=== PATIENT | female | born 1985 | race Caucasian/White ===

== ENCOUNTER 2023-06-29 13:26 | Emergency (ER) | payer MEDICAID, SELFPAY ==
--- NOTE | ~2023-06-29 | US_ITS ---
EXAMINATION: US VENOUS ULTRASOUND WITH DOPPLER LOWER EXTREMITY, LEFT CLINICAL INFORMATION: Left calf pain COMPARISON: None available. TECHNIQUE: Ultrasound of the deep veins is performed from the hip to the calf with compression sonography and color and pulse Doppler assessment. Spectral analysis with color-flow imaging is performed. FINDINGS: The left common femoral vein is not optimally visualized however there is a small filling defect visualized. The left superficial femoral, greater saphenous and popliteal veins are patent. The left femoral vein is not visualized. The posterior tibial vein is noncompressible. There is no significant popliteal fossa cyst. If the patient's symptoms persist, followup ultrasound in 5 days 7 days might be of value to exclude proximal propagation from a non-visualized calf vein. US/US venous duplex LE LT IMPRESSION: Positive DVT left lower leg. Partial thrombus visualized in the left common femoral vein. The posterior tibial vein is noncompressible and suspicious for thrombus.
[2023-06-29 14:50] VITALS: BP 168/71; PULSE 94; RESP 20; TEMP 36.9; O2SAT 98; BMI 32.6
--- NOTE | 2023-06-29 14:50 | ED_ITS ---
HPI - General Adult General Chief complaint: Extremity Problem Stated complaint: ? DVT L Leg Time Seen by Provider: 06/29/23 17:40 Source: patient Mode of arrival: ambulatory Limitations: no limitations History of Present Illness HPI narrative: This is a 38-year-old female history of obesity presenting to the emergency department with 3 days of L calf soreness, patient describes it as ?I feel like I pulled muscle ?patient reports nothing makes the pain better or worse. Patient reports she has no history of DVT or PE. She is a current daily smoker, currently has an IUD in place, no history of malignancy, no recent travel, no chest pain, shortness of breath, fevers, chills, headache, vision changes, dizziness, weakness. Denies blunt trauma to right calf Related Data Previous Rx's Medication Instructions Recorded apixaban 5 mg (74 tabs) tablets in 5 mg PO BID #74 ea 06/29/23 a dose pack (Eliquis DVT-PE Treat 30D Start) Allergies Allergy/AdvReac Type Severity Reaction Status Date / Time Sulfa (Sulfonamide AdvReac Stomach Verified 06/29/23 14:50 Antibiotics) Upset Review of Systems 2 Review of Systems: Constitutional : No Weight loss, No Fever, No Chills, No Fatigue, No Malaise ENT/Mouth : No sore throat, No Rhinorrhea Eyes: No Eye Pain, No Swelling, No Redness Cardiovascular : No Chest Pain, No SOB, No Dyspnea on Exertion, No Orthopnea, No Edema, No Palpitations Respiratory : No Cough, No Sputum, No Wheezing Gastrointestinal : No Nausea, No Vomiting, No Diarrhea, No Constipation, No abdominal Pain, No Hematochezia, No Melena Genitourinary : No Dysuria, No Urinary Frequency, No Hematuria, Musculoskeletal : No joint pain, No Myalgias, + Joint Swelling Skin : No Skin Lesions, No rash Neuro : No Weakness, No Numbness, No Dizziness, No Headache Psych : No Anxiety/Panic, No Depression All other systems reviewed and are negative Yes all other systems are reviewed and are negative [facility] Past Medical History Attestation statement: The following information was validated with the patient. Source: old records reviewed and nursing notes reviewed Social History Social History Advance Directives: No Advance Directives Information Provided: Yes Physical Exam ED Vital Signs: Vital Signs - 24 hr 06/29/23 14:50 Temperature 98.5 F Pulse Rate 94 Respiratory Rate 20 Blood Pressure 168/71 H Pulse Oximetry 98 Oxygen Delivery Method Room Air BMI result Body Mass Index 32.6 vss Appearance: Alert.? Oriented X3.? No acute distress.? Head: Normocephalic, atraumatic, no step-offs or deformities Eyes: Pupils equal, round and reactive to light.? ENT: Pharynx normal.? Neck: Normal inspection.? Neck supple.? CVS: Normal heart rate and rhythm.? Pulses normal.? Respiratory: No respiratory distress.? Breath sounds normal.? Skin: Skin warm and dry.? Normal skin color.? Normal skin turgor.? Extremities: 2+ nonpitting edema to bilateral lower extremities slightly worse on the left, positive Homans sign on the left negative on the right. 2+ dorsalis pedis, anterior tibialis and posterior tibialis pulses equal bilateral. Normal sensation distally. 5/5 strength to bilateral upper and lower extremities Back: No midline tenderness, no C-spine tenderness, full range of motion, no CVA tenderness bilaterally Neuro: Oriented X 3.? No motor deficit.? No sensory deficit. CN 2-12 intact Course Course Course Narrative: This is an RME: Additional HPI, ROS, PE not included below will be deferred to primary provider. This is a [id number]-female, with a history of varicose veins, presenting to the emergency department with a complaint of left lower leg pain x 3 days. No recent travel, surgeries, hospitalizations. No history of blood clots. No history of cancer. No injury or trauma. Tender to palpation along the left calf. Plan: Ultrasound left lower extremity Reevaluation(s) Reevaluation #1: Patient's DVT study positive for DVT in the left lower extremity partial thrombus in the left common femoral vein, posterior tibial vein is not compressible and suspicious for thrombus, will start on Eliquis at this time however will do labs beforehand to ensure this is safe. At this time patient denies bleeding from rectum, vomiting blood, or any bleeding at all. No history of hypercoagulable disorders this has never happened to her before. I did have a long conversation discussing risks versus benefits of initiating Eliquis including increased risk for bleeding patient verbalizes understanding of this. Pending labs and will discharge her on Eliquis starter pack. Patient does not have a PCP will give her list of PCPs in the area. Time: 17:55 Reevaluation #2: Unremarkable CBC, coags will discharge at this time peer insert chart disc Time: 18:42 Medical Decision Making Medical Decision Making [facility] Narrative: 38-year-old female presents with right calf soreness x3 days worsening. Currently has an IUD in place and is a current daily smoker. Physical examination with 2+ nonpitting edema to bilateral lower extremities normal sensation neurovascular status intact. History and physical exam concerning for possible musculoskeletal pain versus DVT. Unlikely arterial occlusion, acute threat to Diaz, neurovascular compromise, acute fracture, dislocation. No signs of compartment syndrome. I do not suspect pulmonary embolism at this time. Other differentials include hypercoagulable disorders. Plan at this time DVT study, labs. Differential Diagnosis Differential Diagnoses: The differential diagnosis associated with the presentation includes History and physical exam concerning for possible musculoskeletal pain versus DVT. Unlikely arterial occlusion, acute threat to Diaz, neurovascular compromise, acute fracture, dislocation. No signs of compartment syndrome. I do not suspect pulmonary embolism at this time. Other differentials include hypercoagulable disorders. Admission/Observation Consideration of admission/observation: Escalation of care including admission/observation considered Unlikely Lab Data [facility] Lab Attestation statement: I reviewed the patient's lab results. 06/29/23 18:05 06/29/23 18:05 Labs: Lab Results 06/29/23 Range/Units 18:05 PT 11.1 (11.1-13.3) SEC INR 0.9 (0.9-1.1) Sodium 137 (135-145) mmol/L Potassium 4.8 (3.3-5.1) mmol/L Chloride 102 (96-108) mmol/L Carbon Dioxide 25 (22-29) mmol/L Anion Gap 15 (12-20) BUN 13 (9-16) mg/dL Creatinine 0.88 (0.5-1.4) mg/dL Estim Creat Clear Calc 91.1 Estimated GFR > 60 Random Glucose 105 (60-115) mg/dL Calcium 9.9 (8.4-10.2) mg/dL Total Bilirubin 0.2 (0.0-1.0) mg/dL AST 13 (5-31) U/L ALT 9 (0-31) U/L Alkaline Phosphatase 108 (39-117) U/L Total Protein 8.6 H (6.5-8.0) g/dL Albumin 4.5 (3.5-5.0) g/dL Independent Interpretation I performed an independent interpretation of an: Ultrasound (US/US venous duplex LE LT IMPRESSION: Positive DVT left lower leg. Partial thrombus visualized in the left common femoral vein. The posterior tibial vein is noncompressible and suspicious for thrombus.) Radiology Impression Discussion of test interpretation with radiology: I have reviewed the radiologist's reading. Chronic Conditions Patient?s care impacted by: Other (obesity ) Critical Care Time Critical Care Time Critical Care Time: No Discharge Plan Discharge Clinical Impression: Deep vein thrombosis of lower extremity Patient Disposition: Home, Self-Care Instructions: Deep Vein Thrombosis (ED) Additional Instructions: Take your medications as prescribed. If you were prescribed antibiotics today, it is important that you take your medication to their entirety, do not skip any doses, do not finish them early. Follow-up with your primary care provider this week. Return to the emergency department with new or worsening symptoms. Such as fevers, chills, chest pain, shortness of breath, nausea, vomiting, dizziness, headache, vision changes, lethargy In case of emergency call 911 If you fall or have any trauma he should be evaluated in emergency department promptly. If you experience any bleeding from the rectum or any oral see you should seek medical attention immediately. Eliquis has been sent to your pharmacy please take this as prescribed this is a starter pack if you have any questions about how to take it please ask your pharmacy. Prescriptions: New Eliquis DVT-PE Treat 30D Start 5 mg (74 tabs) tablets,dose pack 5 mg PO BID Qty: 74 0RF Rx Instructions: Starter Pack dosing- 10 mg twice daily for 7 days followed by 5 mg twice daily. Referrals: [facility] Primary CareIsa[facility] [Provider Group] - 1 day [facility] Primary CareRonal [Provider Group] - 1 day Physician,Jagdish [Primary Care Provider] - 2 days Stand Alone Forms: Work/School Release
--- OUTSIDE RECORDS SUMMARY | 2023-06-29 18:08 | XMS_ITS | Continuity of Care Document ---
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 Refills 0, Maintenance, for constipation, 08/01/20 10:16:00 EST, Route to Pharmacy Electronically, [facility], Partial fill upon patient request if the presc... Start Date: 08/01/20 Status: Ordered doxycycline hyclate 100 mg oral tablet 1 tablet = 100 mg, By Mouth, 2 times a day, # 20 tablet, 0 Refills Start Date: 01/01/09 Stop Date: 01/11/09 Status: Ordered Methadone = 75 mg, By Mouth, 0 Refills, Maintenance, 08/18/20 9:40:00 EST, Partial fill upon patient request if the prescription is for a schedule II opioid drug. Start Date: 08/18/20 Status: Ordered Percocet-5 Tablet See Instructions, 12, tablet, 0, 0, 05/14/07 22:34:43, 1 or 2 every 4 to 6 hours, Print MARGARITA Number,ADS OPPTHS, Constant Indicator Start Date: 05/14/07 Status: Ordered Tylox 500 mg-5 mg oral capsule See Instructions, 1 capsule By Mouth Every 6 hours as needed for pain, # 12 capsule, 0 Refills Start Date: 01/01/09 Stop Date: 01/08/09 Status: Ordered Problem List Condition Effective Dates Status Health Status Inform ant History of intravenous drug abuse(Confirmed) Active Vital Signs Most recent to oldest [Reference Range]: 1 Height 160 cm (08/18/20 9:36 AM) Pulse Rate [55-90 bpm] 80 bpm (08/18/20 9:36 AM) Blood Pressure [90-138/55-84 mm Hg] 99/6 3mm Hg (08/18/20 9:36 AM) Temperature [96.8-100.4 DegF] 95.8 DegF *L* (08/18/20 9:36 AM) Blood pressure sites Arm, right (08/18/20 9:36 AM) Temperature Route Temporal (08/18/20 9:36 AM) Social History Social History Type Response Smoking Status 10 or more cigarette s (1/2 pack or more)/day in last 30 days entered on: 08/18/20 Sex
--- OUTSIDE RECORDS SUMMARY | 2023-06-29 18:08 | XMS_ITS | Continuity of Care Document ---
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 Refills 0, Maintenance, for constipation, 08/01/20 10:16:00 EST, Route to Pharmacy Electronically, [facility], Partial fill upon patient request [...] ant History of intravenous drug abuse(Confirmed) Active Social History Social History Type Response Smoking Status 10 or more cigarette s (1/2 pack or more)/day in last 30 days entered on: 08/18/20 Sex
--- OUTSIDE RECORDS SUMMARY | 2023-06-29 18:08 | XMS_ITS | Continuity of Care Document ---
Author Name Unknown Organization [facility] ter Address [address] [place] [id number]- Care Team Providers Care Automotive Parts Advisor Name Role Phone Talib Burks DO Primary Care Physician [place] [facility] [place] 08/01/[address] [address] Encounter Diagnosis Abdominal pain(Final) - 07/30/20 Discharge Disposition: A-D/C Home Attending Physician: Farzana Olivia MD Admitting Physician: Farzana Olivia MD Referring Physician: Not on Staff, Referring MD Allergies, Adverse Reactions, Alerts Substance Reaction Severity Status sulfa drugs Active Medications Augmentin 875 mg-125 mg oral tablet 1 tablet, By Mouth, Every 12 hours, for 7 days, # 14 tablet, 0 Refills, Acute 08/08/20 10:16:00 EST, 08/01/20 10:16:00 EST, Tablet, [facility], Partial fill upon patient request if the prescription is for a schedule II opioid drug., 160,... Start Date: 08/01/20 Stop Date: 08/08/20 Status: Ordered Colace sodium 100 mg oral capsule 100 mg, 1, capsule, By Mouth, 2 times a day, PRN, # 20 capsule, Refills 0, Tot. Refills 0, Maintenance, for constipation, 08/01/20 10:16:00 EST, Route to Pharmacy Electronically, [facility], Partial fill upon patient request if the presc... Start Date: 08/01/20 Status: Ordered doxycycline hyclate 100 mg oral tablet 1 tablet = 100 mg, By Mouth, 2 times a day, # 20 tablet, 0 Refills Start Date: 01/01/09 Stop Date: 01/11/09 Status: Ordered oxyCODONE 5 mg oral tablet 5 mg, Tablet, By Mouth, Every 4 hours, PRN for Pain , Severe, Routine, 07/31/20 16:06:00 EST Start Date: 07/31/20 Stop Date: 08/01/20 Status: Discontinued Percocet-5 Tablet See Instructions, 12, tablet, 0, [...] ant History of intravenous drug abuse(Confirmed) Active Procedures Procedure Date Related Diagnosis Body Site Status Laparoscopy, surgical; skye cystectomy with cholangiography 1 07/31/20 Completed 1IOC without filling defects in biliary tree, with free flow to duodenum. cystic duct emanates from right hepatic duct. Results Orders for Microbiology Reports Name Date Anaerobic Culture (ANAEROBIC CULTURE) 07/31/20 Wound Deep Culture w/ Gram Smear (DEEP W OUND CULTURE) 07/31/20 Microbiology Reports TEST:Anaerobic Culture STATUS:Unauthenticated BODY SITE: SOURCE:FLUID COLLECTED DATE/TIME:07/31/20 2:59 PM Anaerobic Culture SPECIMEN DESCRIPTION : FLUID GALLBLADDER CONTENTS SPECIAL REQUESTS : NONE CULTURE : NO ANAEROBES ISOLATED SO FAR. REPORT STATUS : PRELIMINARY REPORT TEST:Deep Wound Culture STATUS:Unauthenticated BODY SITE: SOURCE:FLUID COLLECTED DATE/TIME:07/31/20 2:59 PM Deep Wound Culture SPECIMEN DESCRIPTION : FLUID GALLBLADDER CONTENTS SPECIAL REQUESTS : NONE GRAM STAIN : 4+ POLYMORPHONUCLEAR LEUKOCYTES 3+ GRAM POSITIVE COCCI CULTURE : 4+ STAPHYLOCOCCUS AUREUS. 3+ GRAM NEGATIVE RODS REPORT STATUS : PRELIMINARY REPORT Radiology Reports * Exam Date Time Procedure Performing Provider Status 07/31/20 2:41 PM C-Arm < 1 Hour Tami Guidry; Auth (V erified) Notes: (C-Arm < 1 Hour) Reason For Exam: CHOLANGIOGRAM tt 5 min ft 2.1 sec dap 0.40mgy2 RESULT: C-Arm < 1 Hour Cholangiogram Intraoperative, C-Arm < 1 Hour INDICATION/CLINICAL QUESTION: Reason: acute cholecystitis. COMPARISON: Ultrasound 07/30/2020. TECHNIQUE: Fluoroscopy support was provided. There was no radiologist in attendance. Fluoroscopy time: 2.1 seconds. Technologist time: 5 minutes. Exposure: 0.4 mGy FINDINGS: Single fluoroscopic spot view of an intraoperative cholangiogram demonstrate demonstrates a patent residual cystic duct and biliary tree. No filling defects are identified. Please see procedural report for further information. IMPRESSION: See above. WSN: [id number] Ordering Physician: Daniella Gamboa Dictated By: Angelito Strickland MD Dictated Date/Time: 07/31/20 3:17 pm Reviewed By: Angelito Strickland MD Signed By: Angelito Strickland MD Signed Date/Time: 07/31/20 3:17 pm Transcribed By: GREG Transcribed Date/Time: 07/31/20 3:13 pm * Exam Date Time Procedure Performing Provider Status 07/31/20 2:41 PM Cholangiogram Intraoperative Zebian , R enata; Auth (Verified) Notes: (Cholangiogram Intraoperative) Reason For Exam: acute cholecystitis RESULT: Cholangiogram Intraoperative Cholangiogram Intraoperative, C-Arm < 1 Hour INDICATION/CLINICAL QUESTION: Reason: acute cholecystitis. COMPARISON: Ultrasound 07/30/2020. TECHNIQUE: Fluoroscopy support was provided. There was no radiologist in attendance. Fluoroscopy time: 2.1 seconds. Technologist time: 5 minutes. Exposure: 0.4 mGy FINDINGS: Single fluoroscopic spot view of an intraoperative cholangiogram demonstrate demonstrates a patent residual cystic duct and biliary tree. No filling defects are identified. Please see procedural report for further information. IMPRESSION: See above. WSN: [id number] Ordering Physician: Daniella Gamboa Dictated By: Angelito Strickland MD Dictated Date/Time: 07/31/20 3:17 pm Reviewed By: Angelito Strickland MD Signed By: Angelito Strickland MD Signed Date/Time: 07/31/20 3:17 pm Transcribed By: GREG Transcribed Date/Time: 07/31/20 3:13 pm Vital Signs Most recent to oldest [Reference Range]: 1 2 3 Height 160 cm (07/31/20 11:41 AM) 160 cm (07/31/20 3:55 AM) 160 cm (07/30/20 11:57 PM) Weight 95.5 kg (07/31/20 11:41 AM) 95.5 kg (07/30/20 5:55 PM) Oxygen Saturation [94-100 %] 97 % (08/01/20 9:00 AM) 94 % (08/01/20 8:00 AM) 96 % (08/01/20 3:00 AM) Pulse Rate [55-90 bpm] 79 bpm (08/01/20 9:00 AM) 82 bpm (08/01/20 8:00 AM) 84 bpm (08/01/20 3:00 AM) Body Mass Index [18.5-24.99] 37.3 *>HHI* (07/31/20 11:41 AM) 37.3 *>HHI* (07/30/20 5:55 PM) Blood Pressure [90-138/55-84 mm Hg] 134/78mm Hg (08/01/20 9:00 AM) 140/78mm Hg *H* (08/01/20 8:00 AM) 120/75mm Hg (08/01/20 3:00 AM) Respiratory Rate [16-30 br/min] 18 br/min (08/01/20 10:48 AM) 18 br/min (08/01/20 9:00 AM) 18 br/min (08/01/20 8:00 AM) Temperature [96.8-100.4 DegF] 98.2 DegF (08/01/20 9:00 AM) 98.4 DegF (08/01/20 8:00 AM) 99.4 DegF (08/01/20 3:00 AM) Liters per Minute 2 L/min (07/31/20 3:45 PM) 5 L/min (07/31/20 3:30 PM) 6 L/min (07/31/20 3:15 PM) Mode of Delivery (Oxygen) Room air (08/01/20 9:00 AM) Room air (08/01/20 8:00 AM) Room air (08/01/20 3:00 AM) Blood pressure sites Arm, right (08/01/20 9:00 AM) Arm, right (08/01/20 8:00 AM) Arm, left (08/01/20 3:00 AM) Temperature Route Oral (08/01/20 9:00 AM) Oral (08/01/20 8:00 AM) Oral (08/01/20 3:00 AM) Dry Weight 95.5 kg (07/30/20 5:55 PM)
[2023-06-29 18:13] LABS: MANUAL DIFF FLAG NO
[2023-06-29 18:22] LABS: INTERNATIONAL NORM RATIO 0.9 (0.9-1.1); Prothrombin Time 11.1 SEC (11.1-13.3)
[2023-06-29 18:34] LABS: Alanine Aminotransferase 9 U/L (0-31); Albumin Level 4.5 g/dL (3.5-5.0); Alkaline Phosphatase 108 U/L (39-117); Anion Gap 15 (12-20); Aspartate Amino Transferase 13 U/L (5-31); Bilirubin Total 0.2 mg/dL (0.0-1.0); Blood Urea Nitrogen 13 mg/dL (9-16); Calcium 9.9 mg/dL (8.4-10.2); Carbon Dioxide 25 mmol/L (22-29); Chloride 102 mmol/L (96-108); Creatinine Clr Calc Pharmacy 91.1; Estimated Glomerular Filt Rate > 60; Glucose Random 105 mg/dL (60-115); Potassium 4.8 mmol/L (3.3-5.1); Sodium 137 mmol/L (135-145); Total Protein 8.6 g/dL (6.5-8.0)
[2023-06-29 18:37] LABS: Basophils Percent Auto 0.4 % (0-2); Eosinophils Absolute Auto 0.1 X10*3/uL (0.0-0.4); Eosinophils Percent Auto 1.3 % (0-4); Hematocrit 40.4 % (37.0-47.0); Imm Gran Abs Auto 0.04 X10*3/uL (0.00-0.03); Imm Gran Pct Auto 0.4 % (0.0-0.4); Lymphocytes Absolute Auto 2.6 X10*3/uL (1.2-4.9); Lymphocytes Percent Auto 23.3 % (20-40); Mean Corpuscular HGB Conc 32.2 g/dl (31.0-35.0); Mean Corpuscular Hemoglobin 25.7 pg (27.0-33.0); Mean Platelet Volume 9.9 fL (9.4-12.3); Monocytes Absolute Auto 0.5 X10*3/uL (0.1-1.2); Monocytes Percent Auto 4.6 % (2-11); Neutrophils Absolute Auto 7.8 x10*3/uL (2.0-8.3); PLT CLUMP 1; Red Blood Count 5.05 X10*6/uL (4.20-5.50); SCAN SMEAR FLAG 1
[2023-06-29 18:58] LABS: White Blood Count 11.2 X10*3/uL (4.8-10.8)
[2023-06-29 18:59] LABS: Platelet Count 225 X10*3/uL (160-400)
== END 2023-06-29 18:43 | disposition home or self-care (01) ==
PROVIDERS: Physician Assistant; Emergency Provider Student in an Organized Health Care Education/Training Program
DX: I82.412 Acute embolism and thrombosis of left femoral vein (principal); M79.662 Pain in left lower leg; R60.0 Localized edema; F17.200 Nicotine dependence, unspecified, uncomplicated
CPT/HCPCS: 36415; 80053; 85025; 85610; 93971; 99281; 99284

== ENCOUNTER 2024-12-29 16:32 | Emergency (ER) | payer SELFPAY ==
--- NOTE | ~2024-12-29 | US_ITS ---
CLINICAL HISTORY: RLE pain swelling. hx dvt Venous duplex ultrasound right lower extremity Comparison: None Findings: The visualized deep veins are fully compressible with normal Doppler color flow and spectral tracings. There is a 4.9 x 2.4 x 2.0 complex Graff's cyst. There is a hematoma within the right calf measuring 6.2 x 2.7 x 4.9 cm. Small knee joint effusion. IMPRESSION: 1. Negative for right lower extremity deep vein thrombosis. 2. 6.2 cm hematoma in the region of the right gastroc. 3. Small knee joint effusion. 4. Small Graff's cyst. This document has been electronically signed by: Humza Rodriguez MD on 12/29/2024 18:16:15
--- NOTE | ~2024-12-29 | XR_ITS ---
CLINICAL HISTORY: R knee twist 10d ago 4 view right knee Comparison: None Findings: Bones intact. No dislocations. Moderate medial compartment joint space narrowing. Moderate-sized knee joint effusion. No radiopaque foreign body. IMPRESSION: There is a moderate-sized knee joint effusion without evidence of fracture or malalignment. Follow-up recommended. Medial compartment joint space narrowing. This document has been electronically signed by: Humza Rodriguez MD on 12/29/2024 17:24:47
--- NOTE | 2024-12-29 16:35 | ED.LOWEXIN ---
HPI - Extremity Injury (Lower) General Chief Complaint: Extremity Injury, Lower Stated Complaint: ?blood clot right leg Time Seen by Provider: 12/29/24 21:09 Source: patient Limitations: no limitations History of Present Illness ED Provider: Vilma Jasso PA-C HPI Narrative: 39-year-old female with a history of prior DVT no longer on Eliquis, presents with right knee pain. Patient states 10 days ago she injured the knee, she developed gradual calf pain and swelling a week ago. Denies chest pain or shortness of breath. Denies inability to flex or extend the knee, no overlying redness or warmth of the knee. Related Data Previous Rx's ?Medication ?Instructions ?Recorded apixaban 5 mg (74 tabs) tablets in 5 mg PO BID #74 ea 06/29/23 a dose pack (Eliquis DVT-PE Treat 30D Start) Allergies Allergy/AdvReac Type Severity Reaction Status Date / Time Sulfa (Sulfonamide AdvReac Stomach Verified 12/29/24 16:38 Antibiotics) Upset Review of Systems Review of Systems: Yes all other systems are reviewed and are negative Constitutional: Constitutional: Denies fatigue and Denies fever(s) Cardiovascular: Cardiovascular: Denies chest pain and Denies dyspnea Respiratory: Respiratory: Denies dyspnea Musculoskeletal: Musculoskeletal: Reports arthralgias and Reports joint swelling Integumentary/Breasts: Skin/Breast: Denies erythema Endocrine: Endocrine: Denies fatigue PMFSH Past Medical History Attestation statement: The following information was validated with the patient. Social History Social History Use of substances other than those prescribed or required for medical reasons: Yes Substance Use Type: Heroin Substance Use Frequency: Chronic Longstanding Substance Use Frequency Other:: almost daily Advance Directives: No Advance Directives Information Provided: No Do you have a plan to hurt others: No Plan Patient : No Physical Exam Vital Signs: Vital Signs: Last Vital Signs Temp 98.1 F 12/29/24 20:15 Pulse 66 12/29/24 20:15 Resp 18 12/29/24 20:15 BP 124/65 12/29/24 20:15 Pulse Ox 99 12/29/24 20:15 O2 Del Method Room Air 12/29/24 20:15 BMI result Body Mass Index 32.6 Const: Other: Alert Orientation/consciousness: patient oriented x3 Resp: Effort & Inspection: normal respiratory effort Cardio: Other: Normal peripheral perfusion Skin: Other: Warm dry no rash Neuro: Other: Antalgic gait General: patient oriented x3, no focal motor deficits and CN's II-XI intact bilaterally Extrem: Other: Able to flex and extend the knee, although range of motion is somewhat limited, it is swollen, no overlying erythema or warmth, the calf is also objectively swollen when compared to the left Psych: Other: Cooperative Course Course Course Narrative: This is a Rapid Medical Exam performed in triage by Kelin Almendarez PA-C. Full HPI, ROS and PE to be performed by primary ED provider. 39 yo F w/PMHx DVT (not on AC currently - unclear if she is still supposed to be anticoagulated) presenting to the ED c/o R knee pain s/p injury 10 days ago after twisting knee when going down the stairs. Admits to R calf pain x3 days. PE: knee brace on RLE. ambulating with slow steady gait. R knee with mild swelling. +RLE pitting edema & +R calf ttp. NV intact distally Plan: US, XR Medical Decision Making Medical Decision Making MDM Narrative: 39-year-old female with a history of prior DVT no longer on Eliquis, presents with right knee pain. Patient states 10 days ago she injured the knee, she developed gradual calf pain and swelling a week ago. Denies chest pain or shortness of breath. Denies inability to flex or extend the knee, no overlying redness or warmth of the knee. Problem: Prior DVT History: Per patient I have considered the following differential diagnoses: DVT, cellulitis, sprain, Graff cyst, septic effusion, fracture/dislocation Plan: Screening labs and an ultrasound to rule out DVT and x-ray were obtained from triage, she has a Graff cyst. She has no exam findings consistent with septic effusion. We will send with home care instructions and contact for the orthopedic service so it can be drained. I have independently reviewed the following tests: Labs: Slight leukocytosis, no left shift, not anemic, no electrolyte abnormality DVT right lower extremity: IMPRESSION: 1. Negative for right lower extremity deep vein thrombosis. 2. 6.2 cm hematoma in the region of the right gastroc. 3. Small knee joint effusion. 4. Small Graff's cyst. X-ray right knee:Comparison: None Findings: Bones intact. No dislocations. Moderate medial compartment joint space narrowing. Moderate-sized knee joint effusion. No radiopaque foreign body. IMPRESSION: There is a moderate-sized knee joint effusion without evidence of fracture or malalignment. Follow-up recommended. Medial compartment joint space narrowing. Discharge Plan Discharge Clinical Impression: Synovial cyst of popliteal space [Graff], right knee Patient Disposition: Home, Self-Care Instructions: Graff Cyst (ED), P.R.I.C.E. Treatment (ED) Additional Instructions: The ultrasound was negative for a clot, you have what is called a Graff cyst. It is related to arthritic changes of the knee. See home care instructions. I am providing you with a contact for our orthopedic service, the cyst can be drained. Call to schedule an appointment. Prescriptions: No Action Eliquis DVT-PE Treat 30D Start 5 mg (74 tabs) tablets,dose pack 5 mg PO BID Qty: 74 0RF Rx Instructions: Starter Pack dosing- 10 mg twice daily for 7 days followed by 5 mg twice daily. Referrals: Javier Kidd MD [Physician] - (Right Graff cyst) Stand Alone Forms: Work/School Release Print Language: Montserratian
[2024-12-29 16:36] VITALS: BP 160/77; PULSE 90; RESP 19; TEMP 36.6; O2SAT 98; BMI 32.6
[2024-12-29 20:15] VITALS: BP 124/65; PULSE 66; RESP 18; TEMP 36.7; O2SAT 99
--- NOTE | 2024-12-29 20:54 | PC.NURSE ---
assumed care of pt. Pt states 10 days ago pain with ambulation started on R leg, reports 5/10 when ambulating. Pt reports no pain while sitting. Slight warmth on R lower leg compared to L. No pitting edema, no redness noted. Respirations even and unlabored.
[2024-12-29 22:46] VITALS: BP 132/78; PULSE 75; RESP 16; TEMP 36.9; O2SAT 99
== END 2024-12-29 22:47 | disposition home or self-care (01) ==
PROVIDERS: Emergency Provider Emergency Medicine
DX: M71.21 Synovial cyst of popliteal space [Baker], right knee (principal); R60.0 Localized edema; M79.661 Pain in right lower leg; Z86.718 Personal history of other venous thrombosis and embolism
CPT/HCPCS: 73562; 93971; 99284

== ENCOUNTER → 2024-12-29 16:40 | Outpatient (BNV) | payer SELFPAY | PROVIDERS: Visit Provider Radiology Vascular & Interventional Radiology | DX: M71.21 Synovial cyst of popliteal space [Baker], right knee (principal); M25.461 Effusion, right knee | CPT/HCPCS: 73562; 93971 ==

== ENCOUNTER 2025-07-04 12:34 | Emergency (ER) | payer SELFPAY ==
--- NOTE | ~2025-07-04 | XR_ITS ---
CLINICAL HISTORY: back pain 3 views lumbar spine Comparison: None provided Findings: Moderate narrowing of the L4-5 intervertebral disc space. Grade 1 anterolisthesis of the L4 over L5. No acute fractures or dislocation. L5-S1: Mild narrowing of the intervertebral space. IUD present. Moderate sclerosis of the left sacroiliac joint. IMPRESSION: 1. Grade 1 anterolisthesis of L4 over L5 with moderate L4-5 disc space narrowing. 2. Mild L5-S1 disc space narrowing. 3. Moderate left sacroiliitis. 4. No acute osseous injury. If pain persists, consider MRI of the lumbar spine. This document has been electronically signed by: Feroz Woods MD on 07/04/2025 20:25:51
[2025-07-04 12:52] VITALS: BP 128/73; PULSE 83; RESP 18; TEMP 36.6; O2SAT 98; BMI 37.6
--- NOTE | 2025-07-04 12:52 | ED.GENADULT ---
HPI - General Adult General Chief complaint: Back Pain/Injury Stated complaint: Sciatic Nerve Pain Time Seen by Provider: 07/04/25 19:27 History of Present Illness HPI narrative: Patient is a 40-year-old female with a history of having back pain radiating down to the left leg over the last 2-1/2 weeks. There is no fever no chills. Has a remote history of IV drug use over 10 years ago. No travel history no leg swelling. No bowel urinary incontinence. Patient is from home. Try to take Motrin with moderate relief. Exacerbated by walking. There is no trauma to the area. No focal weakness able to ambulate. Related Data Previous Rx's ?Medication ?Instructions ?Recorded apixaban 5 mg (74 tabs) tablets in 5 mg PO BID #74 ea 06/29/23 a dose pack (Eliquis DVT-PE Treat 30D Start) Allergies Allergy/AdvReac Type Severity Reaction Status Date / Time Sulfa (Sulfonamide AdvReac Stomach Verified 07/04/25 12:55 Antibiotics) Upset Review of Systems Review of Systems: Positive back pain radiating down the left leg down to the mid leg area [facility] Past Medical History Attestation statement: The following information was validated with the patient. Social History Social History Substance Use Type: Heroin and IV Drugs Physical Exam ED Exam Exam: Appearance: Alert. Oriented X3. No acute distress. Eyes: Pupils equal, round and reactive to light. ENT: Pharynx normal. Neck: Normal inspection. Neck supple. No lymph nodes noted. No crepitus CVS: Normal heart rate and rhythm. Pulses normal. Normal S1 and S2 Respiratory: No respiratory distress. Breath sounds normal. No Wheezing. No rales Abdomen: Soft and nontender. No rigidity. No distention. good BS x4 Skin: Skin warm and dry. Normal skin color. Normal skin turgor. Extremities: No lower extremity edema. Neurovascular intact to all extremities. No Lacerations. No Rash. There is good sensation to bilateral lower extremity. Reflexes are equal in patella. Ambulates with a normal gait. Neuro: Oriented X 3. No motor deficit. No sensory deficit. Moving all extermities. No slurred speech Vital Signs: Vital Signs - 24 hr 07/04/25 18:53 07/04/25 19:26 12/12/25 22:51 Temperature 98.0 F 98 F 97.7 F Pulse Rate 91 83 79 Respiratory Rate 18 16 13 Blood Pressure 133/60 136/69 120/65 Pulse Oximetry 100 99 96 Oxygen Delivery Method Room Air Room Air Room Air 07/05/25 00:07 07/05/25 01:04 Temperature 97.8 F Pulse Rate 88 88 Respiratory Rate 16 16 Blood Pressure 120/76 120/76 Pulse Oximetry 96 96 Oxygen Delivery Method Room Air Room Air BMI result Body Mass Index 37.6 Course Course Course Narrative: Rapid medical examination performed in triage by Mamie Pollock PA-C: Patient is a 40 year old assigned female at presenting to the emergency department with low back pain. Patient states she doesn't normally have issues with low back pain and now she is. Detailed physical exam and review of systems are deferred to the team primary care physician. Patient placed back in the waiting room pending room availability. Reevaluation(s) Reevaluation #1: Received critical report of Gram-positive cocci and clusters in 1/2 blood culture sets. Appears that patient was transferred to [facility]. Will fax over this information. Fax number [phone] 6:51 PM 07/05/2025 (Sophie Pham PA-C): 2/2 positive sets of Gram-positive cocci in clusters, MRSA is negative, staph aureus is positive. We will fax over this information. Time: 14:13 Medications Administered Discontinued Medications Generic Name Dose Route Start Last Admin Trade Name Freq PRN Reason Stop Dose Admin Potassium Chloride 10 meq in 100 mls @ 100 mls/hr 07/04/25 20:28 07/05/25 00:03 Potassium Chloride/H20 IV 07/04/25 21:27 Infused ONCE ONE Infusion Piperacillin Sod/Tazobactam 100 mls @ 200 mls/hr 07/04/25 21:28 07/04/25 23:16 Sod 4.5 gm/ Sodium Chloride IV 07/04/25 21:57 Infused ONCE ONE Infusion Vancomycin HCl 2,000 mg in 500 mls @ 250 mls/hr 07/04/25 21:45 07/05/25 02:52 Vancomycin/Ns IV 07/04/25 23:44 Infused ONCE ONE Infusion Sodium Chloride 1,000 mls @ 999 mls/hr 07/04/25 21:45 07/05/25 00:07 Ns IV 07/04/25 22:45 Infused .Q1H1M [facility] Infusion Potassium Chloride 40 meq 07/04/25 20:28 07/04/25 22:18 Potassium Chloride Packet 20 Meq Packet PO 07/04/25 20:29 40 meq ONCE ONE Administration Procedures Ultrasound ED POC Ultrasound: EMERGENCY ULTRASOUND REPORT?Ultrasound-Assisted ED Procedures Indication: Vein Catheterization: RN unable to obtain 20 gauge 1.16 inch IV placed in right upper extremity. Adequate blood return, flushes well, secured with Tegaderm. Performed by: Vilma Jasso PA-C Date:07/04/2025 Time: 1150 pm Medical Decision Making Medical Decision Making MDM Narrative: On further questioning patient is still using IV drugs. Mainly heroin. Sed rate was elevated. CRP elevated suggestive for possible spinal abscess. Cultures obtained. Started on Zosyn and vancomycin. Lactate and cultures ordered. IV fluid was ordered. White count was 11. Urine test is negative. Magnesium is normal. Patient's K was 2.5 repleted with oral and IV. Patient will require admission for further evaluation. It is now after 21:00. MRI is not available. Patient's case discussed with hospitalist team. They do not feel comfortable taking the patient wanted patient to be transferred. Patient's case consulted with [facility]. They refused as they have no capacity. Patient's case discussed with [facility]. They refused as they had no capacity. Patient's case discussed with [facility]. [facility] was closed. They were able to find [facility] to accept patient to their ED. Except being doctor will be Dr. Morrison. Patient is in no distress. Vancomycin is going in. Repeat electrolytes are still pending. Repeat electrolytes show K of 3.1. Risk and benefits of transfer explained to patient agree with plan of transfer. Currently in stable condition. Differential Diagnosis Differential Diagnoses: The differential diagnosis associated with the presentation includes Spinal abscess Admission/Observation Consideration of admission/observation: Escalation of care including admission/observation considered Consult Healthcare Provider Management of the patient was discussed with: Hospitalist and Full Stack Software Engineer ([facility] transfer center. [facility]. [facility] accepted on behalf of Dr. Morrison at [facility]) Lab Data [facility] Lab Attestation statement: I reviewed the patient's lab results. 07/04/25 20:06 07/05/25 00:06 Labs: Lab Results 07/04/25 07/04/25 07/04/25 Range/Units 18:58 20:06 21:48 WBC 11.3 H (4.8-10.8) X10*3/uL RBC 4.30 (4.20-5.50) X10*6/uL Hgb 9.3 L D (12.0-16.0) g/dl Hct 31.3 L D (37.0-47.0) % MCV 72.8 L (80.0-98.0) fL MCH 21.6 L (27.0-33.0) pg MCHC 29.7 L (31.0-35.0) g/dl RDW 15.5 (11.0-16.0) % Plt Count 584 H D (160-400) X10*3/uL MPV 8.0 L (9.4-12.3) fL Immature Gran % (Auto) 0.5 H (0.0-0.4) % Neut % (Auto) 86.6 H (45-73) % Lymph % (Auto) 7.9 L (20-40) % [place] % (Auto) 4.0 (2-11) % Eos % (Auto) 0.6 (0-4) % Baso % (Auto) 0.4 (0-2) % Lymph # (Auto) 0.9 L (1.2-4.9) X10*3/uL [place] # (Auto) 0.5 (0.1-1.2) X10*3/uL Eos # (Auto) 0.1 (0.0-0.4) X10*3/uL Baso # (Auto) 0.0 (0.0-0.2) X10*3/uL Abs Immat Gran (auto) 0.06 H (0.00-0.03) X10*3/uL Absolute Neuts (auto) 9.8 H (2.0-8.3) x10*3/uL Absolute Nucleated RBC 0.000 (0.0-0.012) X10*3/uL Nucleated RBC % (auto) 0.0 (0.0-0.2) /100WBC ESR 100 H (1-20) MM/HR Sodium 138 (135-145) mmol/L Potassium 2.5 L* (3.3-5.1) mmol/L Chloride 89 L (96-108) mmol/L Carbon Dioxide 33 H (22-29) mmol/L Anion Gap 19 (12-20) BUN 7 L (9-16) mg/dL Creatinine 0.55 (0.5-1.4) mg/dL Estim Creat Clear Calc 148.7 Estimated GFR > 60 Random Glucose 133 H (60-115) mg/dL Lactic Acid 1.1 (0.5-2.0) mmol/L Calcium 9.7 (8.4-10.2) mg/dL Magnesium 2.1 (1.6-2.6) mg/dL C-Reactive Protein 33.39 H (< or = 0.50) mg/dL Urine Color Dark Yellow Urine Appearance Clear Urine pH 6.5 (5.0-9.0) Ur Specific [place] 1.015 (1.005-1.025) Urine Protein 30 (1+) H (Neg-Trace) mg/dL Urine Glucose (UA) Negative (Negative) mg/dL Urine Ketones Negative (Negative) mg/dL Urine Blood Negative (Negative) Urine Nitrite Negative (Negative) Ur Leukocyte Esterase Negative (Negative) Urine RBC 0-2 (0-2) /HPF Urine WBC 0-5 (0-5) /HPF Ur Squamous Epith Cells 3-5 (0-2) /HPF Urine Bacteria 1+ (None Seen) Hyaline Casts 0-2 (0-2) /LPF Urine Test NEGATIVE (NEGATIVE) 07/05/25 Range/Units 00:06 WBC (4.8-10.8) X10*3/uL RBC (4.20-5.50) X10*6/uL Hgb (12.0-16.0) g/dl Hct (37.0-47.0) % MCV (80.0-98.0) fL MCH (27.0-33.0) pg MCHC (31.0-35.0) g/dl RDW (11.0-16.0) % Plt Count (160-400) X10*3/uL MPV (9.4-12.3) fL Immature Gran % (Auto) (0.0-0.4) % Neut % (Auto) (45-73) % Lymph % (Auto) (20-40) % [place] % (Auto) (2-11) % Eos % (Auto) (0-4) % Baso % (Auto) (0-2) % Lymph # (Auto) (1.2-4.9) X10*3/uL [place] # (Auto) (0.1-1.2) X10*3/uL Eos # (Auto) (0.0-0.4) X10*3/uL Baso # (Auto) (0.0-0.2) X10*3/uL Abs Immat Gran (auto) (0.00-0.03) X10*3/uL Absolute Neuts (auto) (2.0-8.3) x10*3/uL Absolute Nucleated RBC (0.0-0.012) X10*3/uL Nucleated RBC % (auto) (0.0-0.2) /100WBC ESR (1-20) MM/HR Sodium 140 (135-145) mmol/L Potassium 3.1 L D (3.3-5.1) mmol/L Chloride 95 L (96-108) mmol/L Carbon Dioxide 33 H (22-29) mmol/L Anion Gap 15 (12-20) BUN 7 L (9-16) mg/dL Creatinine 0.53 (0.5-1.4) mg/dL Estim Creat Clear Calc 154.3 Estimated GFR > 60 Random Glucose 113 (60-115) mg/dL Lactic Acid (0.5-2.0) mmol/L Calcium 8.9 D (8.4-10.2) mg/dL Magnesium (1.6-2.6) mg/dL C-Reactive Protein (< or = 0.50) mg/dL Urine Color Urine Appearance Urine pH (5.0-9.0) Ur Specific [place] (1.005-1.025) Urine Protein (Neg-Trace) mg/dL Urine Glucose (UA) (Negative) mg/dL Urine Ketones (Negative) mg/dL Urine Blood (Negative) Urine Nitrite (Negative) Ur Leukocyte Esterase (Negative) Urine RBC (0-2) /HPF Urine WBC (0-5) /HPF Ur Squamous Epith Cells (0-2) /HPF Urine Bacteria (None Seen) Hyaline Casts (0-2) /LPF Urine Test (NEGATIVE) Independent Interpretation I performed an independent interpretation of an: Plain X-Ray (X-ray of the lower back was grossly negative) Radiology Impression Discussion of test interpretation with radiology: I have reviewed the radiologist's reading. Chronic Conditions History of IV drug use Critical Care Time Critical Care Time Critical Care Time: Yes Total Critical Care Time: 90 Attestation: I have personally provided 90 minutes of critical care time exclusive of time spent on separately billable procedures. ?Time includes review of lab data, radiology results, discussion with consultants, and monitoring for potential decompensation. ?Interventions were performed as documented above Discharge Plan Discharge Clinical Impression: Spinal abscess Patient Disposition: Xfer Acute [facility] Prescriptions: No Action Eliquis DVT-PE Treat 30D Start 5 mg (74 tabs) tablets,dose pack 5 mg PO BID Qty: 74 0RF Rx Instructions: Starter Pack dosing- 10 mg twice daily for 7 days followed by 5 mg twice daily. Interventions: Acute Care Transfer Worksheet (ED) Last Done: 07/05/25 01:04 Discharge Date/Time: 07/05/25 01:04 Print Language: French
[2025-07-04 18:53] VITALS: BP 133/60; PULSE 91; RESP 18; TEMP 36.7; O2SAT 100
[2025-07-04 19:16] LABS: Appearance Urine Clear; Glucose Urine UA Negative (Negative); PH 6.5 (5.0-9.0); Specific Gravity - Urine 1.015 (1.005-1.025); UMIC TRIGGER UACC YES
[2025-07-04 19:26] VITALS: BP 136/69; PULSE 83; RESP 16; TEMP 36.6; O2SAT 99
[2025-07-04 19:55] LABS: UPreg QC Valid YES
[2025-07-04 20:11] LABS: MANUAL DIFF FLAG NO
[2025-07-04 20:28] LABS: Anion Gap 19 (12-20); Blood Urea Nitrogen 7 mg/dL (9-16); Calcium 9.7 mg/dL (8.4-10.2); Carbon Dioxide 33 mmol/L (22-29); Chloride 89 mmol/L (96-108); Creatinine Clr Calc Pharmacy 148.7; Estimated Glomerular Filt Rate > 60; Potassium 2.5 mmol/L (3.3-5.1); Sodium 138 mmol/L (135-145)
[2025-07-04 20:40] LABS: Hematocrit 31.3 % (37.0-47.0); Hemoglobin 9.3 g/dl (12.0-16.0); Imm Gran Abs Auto 0.06 X10*3/uL (0.00-0.03); Imm Gran Pct Auto 0.5 % (0.0-0.4); Lymphocytes Absolute Auto 0.9 X10*3/uL (1.2-4.9); Mean Corpuscular HGB Conc 29.7 g/dl (31.0-35.0); Mean Corpuscular Hemoglobin 21.6 pg (27.0-33.0); Mean Corpuscular Volume 72.8 fL (80.0-98.0); NRBC Abs Auto 0.000 X10*3/uL (0.0-0.012); NRBC Pct Auto 0.0 /100WBC (0.0-0.2); Platelet Count 584 X10*3/uL (160-400); Red Blood Count 4.30 X10*6/uL (4.20-5.50); White Blood Count 11.3 X10*3/uL (4.8-10.8)
[2025-07-04 20:41] LABS: Magnesium 2.1 mg/dL (1.6-2.6)
--- OUTSIDE RECORDS SUMMARY | 2025-07-04 20:50 | XMS_ITS | Clinical Summary ---
Author Organization [facility] Address [address] [place] [address] Care Team Providers Care Proof Tester Name Role Phone Lisa Wheat MD Primary Care Provider [phone] Social History Tobacco Use Types Packs/Day Years Used Date Smoking Tobacco: Never Assessed Comments Unknown Sex and Gender Information Value Date Recorded Sex Assigned at Not on file Legal Sex Female 8:43 PM EST Gender Identity Not on file Sexual Orientation Not on file Plan of Treatment Health Maintenance Due Date Last Done Comments Breast Cancer Screening 1984 DTaP,Tdap,and Td Vaccines (1 - Tdap) 2003 Hepatitis B Vaccines (1 of 3 - 19+ 3-dose series) 2003 Cervical Cancer Screening: P ap Smear 2005 HPV Vaccines (1 - 3-dose SCD M series) 2011 Depression Screening 07/24/2024 COVID-19 Vaccine ( - 2024-2 6 season) 2025 Influenza Vaccine (#1) 2025 RSV Immunization Adult Patie nts (1 - 1-dose 75+ series) 2059 HIB Vaccines Aged Out No longer eligi ble based on patient's age to complete this topic Hepatitis A Vaccines Aged Out No long er eligible based on patient's age to complete this topic IPV Vaccines Aged Out No longer eligi ble based on patient's age to complete this topic MMR Vaccines Aged Out No longer eligi ble based on patient's age to complete this topic Meningococcal ACWY Vaccine Aged Out N o longer eligible based on patient's age to complete this topic Meningococcal B Vaccine Aged Out No l onger eligible based on patient's age to complete this topic Pneumococcal Vaccine: Pediat rics (0 to 5 Years) and At-Risk Patients (6 to 49 Years) Aged Out No longer eligible b ased on patient's age to complete this topic RSV Immunization Patients Un mike 20 months Aged Out No longer eligible b ased on patient's age to complete this topic Varicella Vaccines Aged Out No longer eligible based on patient's age to complete this topic Care Teams Proof Tester Relationship Specialty Start Date End Date Lisa Wheat MD PCP - General Internal Medicine 05/26/17
[2025-07-04] MEDS: Potassium Chloride Packet 20 MEQ PACKET 40 MEQ PO (22:18)
--- NOTE | 2025-07-04 22:50 | PC.NURSE ---
pt very difficult stick, able to obtain a 22G in the LFA, PA Jasso bedside at this time attempting ultra sound guided IV.
[2025-07-04 22:51] VITALS: BP 120/65; PULSE 79; RESP 13; TEMP 36.5; O2SAT 96
[2025-07-04] MEDS: Potassium Chloride/H20 10 MEQ/100 ML PIGGYBACK 100 MEQ IV (22:54)
[2025-07-04] MEDS: vancomycin/NS 2,000 MG/500 ML PLAST..BAG 250 MG IV (23:14)
[2025-07-05 00:07] VITALS: BP 120/76; PULSE 88; RESP 16; O2SAT 96
[2025-07-05 00:26] LABS: Anion Gap 15 (12-20); Blood Urea Nitrogen 7 mg/dL (9-16); Calcium 8.9 mg/dL (8.4-10.2); Carbon Dioxide 33 mmol/L (22-29); Chloride 95 mmol/L (96-108); Creatinine Clr Calc Pharmacy 154.3; Estimated Glomerular Filt Rate > 60; Potassium 3.1 mmol/L (3.3-5.1); Sodium 140 mmol/L (135-145)
--- NOTE | 2025-07-05 00:31 | PC.NURSE ---
nurse to nurse report given to Giana HURST at [facility] where pt will be transferred.
[2025-07-05 01:04] VITALS: BP 120/76; PULSE 88; RESP 16; TEMP 36.6; O2SAT 96
== END 2025-07-05 01:04 | disposition short-term general hospital (02) ==
PROVIDERS: Physician Assistant Medical; Emergency Provider Emergency Medicine Emergency Medical Services
DX: G06.1 Intraspinal abscess and granuloma (principal); A49.01 Methicillin susceptible Staphylococcus aureus infection, unspecified site
CPT/HCPCS: 36410; 36415; 72100; 76937; 80048; 81001; 81025; 83605; 83735; 85025; 85652; 86140; 87040; 87077; 87147; 87186; 87205; 96361; 96365; 96366; 96367; 99285; 99291; 99292; J2543; J3373; J3480

== ENCOUNTER → 2025-07-04 19:39 | Outpatient (BNV) | payer SELFPAY | PROVIDERS: Emergency Provider Emergency Medicine Emergency Medical Services; Visit Provider Radiology Diagnostic Radiology | DX: M48.07 Spinal stenosis, lumbosacral region (principal); M46.1 Sacroiliitis, not elsewhere classified | CPT/HCPCS: 72100 ==